=== PATIENT | female | born 1945 | race Caucasian/White ===

== ENCOUNTER 2024-05-10 21:33 | Inpatient (IN) | payer OTHER, SELFPAY ==
[2024-05-10] VITALS (8 sets, daily range): BP systolic 89–125; BP diastolic 62–85; PULSE 77–86; BMI 24.6
--- NOTE | 2024-05-10 17:38 | ED.GENMED ---
ED Provider Triage
<NAHOMI Linda - Last Filed: 05/10/24 17:40>
-
Patient seen by provider in Triage?: Seen in Triage
Attestation: A medical screening examination has been initiated by a qualified medical provider. Based on the assessment performed at this time, it has been determined that an emergent medical condition may exist and the patient has been informed
that further medical evaluation and possible additional diagnostic testing may be needed.
HPI:
78-year-old female brought by daughter for evaluation of weakness for the past week and a half. Patient is felt very weak tired lightheaded. Today she was seeing her pain management doctor and stood up from a bench felt lightheaded and fell
hitting her knees. She denies syncope. She denies hitting her head. She is not on blood thinners other than aspirin. Patient has a history of brain aneurysm GI bleed in the past. Pt denies dark/black stools
GENERAL: Alert , in no apparent distress
EYE: No visual abnormalities.
NECK: Trachea midline
ENT: No visible abnormalities.
LUNGS: No acute respiratory distress
NEUROLOGICAL: Alert and oriented
SKIN: Skin intact. No visible changes.
MUSCULOSKELETAL: Moving extremities normally
PSYCH: Normal and appropriate interaction.
This is a medical evaluation conducted in person to initiate diagnostic evaluation and provide initial therapeutics. Please see further documentation by the treating clinician.
History of Present Illness
<NAHOMI Linda - Last Filed: 05/10/24 17:40>
General
Chief Complaint: Dizziness
Time Seen by Provider: 05/10/24 18:44
<Deepika Denson PA-C - Last Filed: 05/10/24 22:44>
General
Source: patient and family
History of Present Illness
History of Present Illness:
78yoF with a history of coronary artery disease s/p PCI, rheumatoid arthritis on Plaquenil and prednisone, type 2 diabetes, hypertension, bladder cancer, and cerebral aneurysm s/p coiling presenting with her daughter and sister for evaluation of
generalized weakness. Patient has been feeling generally weak and fatigued over the past 1 to 2 weeks. She also is having nausea, decreased p.o. intake, and exertional dyspnea. Patient had an appointment with her pain management doctor today.
While walking into the office, she had a near syncopal episode. Patient states she was sitting on a bench and stood up. She fell onto her knees. There was no head injury or loss of consciousness. Her blood pressure was 91/62 in the office.
Family states the last time she had similar symptoms, she required several blood transfusions for severe anemia. No source of anemia was found at that time. Patient denies any hematochezia, melena, fevers, abdominal pain.
Phy Exam
<Deepika Denson PA-C - Last Filed: 05/10/24 22:44>
General Physical Exam
General Presentation: well appearing and no apparent distress
General age: appears stated age
General Skin: warm and dry
General Habitus: normal
General Mental: alert
ENT Exam
ENT Exam: normocephalic
Cardiovascular Exam
Cardiovascular Exam: regular rate/rhythm and systolic murmur
Pulmonary Exam
Pulmonary Exam: lungs clear, no respiratory distress, no crackles and no wheezing
Gastrointestinal Exam
Gastrointestinal Exam: non tender, soft and non distended
[place] Coma Scale
Eye Opening: Spontaneous
Verbal Response: Oriented
Motor Response: Obeys Commands
GCS Total Score: 15
Skin Exam
Skin Exam: normal color and warm/dry
Psychiatric Exam
Psychiatric Exam: normal mood/affect
Course
<NAHOMI Linda - Last Filed: 05/10/24 17:40>
Orders/Labs/Results
Orders:
Orders
05/10/24 17:40
Electrocardiogram (*1) Stat
Reason for Study: Other
Other Reason for Exam: chest pain
EKG- Treatment ONCE
05/10/24 17:49
Complete Blood Count/With Diff Urgent
Comprehensive Metabolic Panel Urgent
Ferritin Urgent
Comment: ADDON
Folate Urgent
Comment: ADDON
Iron Urgent
Magnesium Urgent
Comment: ADD ON
Total Iron Binding Urgent
Troponin I Urgent
Vitamin B12 Urgent
Comment: ADDON
05/10/24 18:44
Add On- LAB Urgent
Tests Added?: magnesium
Potassium Chloride [KCl] 60 meq PO NOW STA
05/10/24 18:57
Electrocardiogram (*1) Urgent
Reason for Study: Atrial Fibrillation
EKG- Treatment ONCE
05/10/24 19:31
0.9% Sodium Chloride 500 ml [Nss] 500 ml IV BOLUS
Magnesium Sulfate 2 Gram/50 ml [Magnesium Sulfate] 2 gram in 50 ml IV NOW
05/10/24 19:33
CR Chest - 2 Views Urgent
Comment:
Reason For Exam: SOB
05/10/24 19:35
Urinalysis Reflex To Culture Urgent
Date Specimen was Collected: 05/10/24
Time Specimen was Collected: 17:49
Urine Microscopic Reflex Cult Urgent
Urine Culture Urgent
REJI Source: U
Specimen Description:
Date Specimen was Collected: 05/10/24
Time Specimen was Collected: 17:49
05/10/24 20:04
Potassium Chloride [KCl] 20 meq 0.9% Sodium Chloride 150 ml [Nss] 150 ml IV NOW
05/10/24 21:06
Add On- LAB Urgent
Tests Added?: iron, tibc, ferritin, folate b12
05/10/24 21:08
Admit/Transfer Patient As Directed
Co-Sign Provider:
Level of Care: Inpatient admission
Assign to:: Telemetry
Physician / Group: alaina mathew
Diagnosis: Orthostatic hypotension, hypokalemia, hypomagnesemia, anemia
Reason for Telemetry: Arrhythmia
Date to Stop Telemetry: 05/13/24
Time to Stop Telemetry: 11:00
Reason for Hospitalization: Orthostatic hypotension, hypokalemia, hypomagnesemia, anemia
Expected length of stay greater than two midnights?: Yes
ELOS- Estimated Length of Stay in days: 3
I certify the patient meets the requirements for IP care: Yes
Code Status As Directed
Resuscitation Status: Full Code
05/10/24 21:11
PRN Pain Medication Management As Directed
May give lesser potent ordered pain med per pt: Yes
preference::
Protocol:: Medication orders for pain may be administered in a
manner that supports deferring to patient preference
when the pt is:
- Requesting an ordered lesser potent pain medication.
Least to most potent pain medications are defined
as: acetaminophen < NSAID < tramadol < opioids
(morphine, oxycodone, hydromorphone).
- Requesting a lesser dose of the same medication IF
ORDERED.
- Requesting a less intrusive route of administration
if both routes are prescribed by the provider (PO <
IV).
05/13/24 11:00
DC Protocol for Telemetry ONCE
Abnormal Lab Results
05/10/24 05/10/24
17:49 19:35
RBC 3.75 L 10^6/uL
(4.20-5.40)
Hgb 10.6 L g/dL
(12.0-16.0)
Hct 30.3 L %
(37.0-47.0)
MCV 80.8 L fL
(81.0-99.0)
Absolute Monos (auto) 0.7 H 10^3/uL
(0.1-0.6)
Lymphocytes % 18.7 L %
(20.5-51.1)
Sodium 133 L mmol/L
(135-145)
Potassium 2.8 L mmol/L
(3.5-5.1)
Chloride 93 L mmol/L
(98-107)
BUN 18 H mg/dl
(7-17)
Magnesium 1.5 L mg/dl
(1.6-2.3)
Leukocyte Esterase Rfl 2+ A
(Negative)
Urine WBC (Reflex) 26-30 A /HPF
(0-5)
Urine Bacteria (Reflex) Many A
(Negative)
05/10/24 17:49
05/10/24 17:49
Vital Signs
Initial and Last Documented VS:
Initial Vital Signs
Temp Pulse Resp BP Pulse Ox
98.2 F 87 18 102/83 98
05/10/24 17:30 05/10/24 17:30 05/10/24 17:30 05/10/24 17:30 05/10/24 17:30
Last Documented Vital Signs
Temp Pulse Resp BP Pulse Ox
98.4 F 75 19 116/70 98
05/10/24 22:20 05/10/24 22:15 05/10/24 22:15 05/10/24 20:00 05/10/24 22:00
Laurynlt;Deepika Denson PA-C - Last Filed: 05/10/24 22:44>
Orders/Labs/Results
Orders:
Orders
05/10/24 17:40
Electrocardiogram (*1) Stat
Reason for Study: Other
Other Reason for Exam: chest pain
EKG- Treatment ONCE
05/10/24 17:49
Complete Blood Count/With Diff Urgent
Comprehensive Metabolic Panel Urgent
Ferritin Urgent
Comment: ADDON
Folate Urgent
Comment: ADDON
Iron Urgent
Magnesium Urgent
Comment: ADD ON
Total Iron Binding Urgent
Troponin I Urgent
Vitamin B12 Urgent
Comment: ADDON
05/10/24 18:44
Add On- LAB Urgent
Tests Added?: magnesium
Potassium Chloride [KCl] 60 meq PO NOW STA
05/10/24 18:57
Electrocardiogram (*1) Urgent
Reason for Study: Atrial Fibrillation
EKG- Treatment ONCE
05/10/24 19:31
0.9% Sodium Chloride 500 ml [Nss] 500 ml IV BOLUS
Magnesium Sulfate 2 Gram/50 ml [Magnesium Sulfate] 2 gram in 50 ml IV NOW
05/10/24 19:33
CR Chest - 2 Views Urgent
Comment:
Reason For Exam: SOB
05/10/24 19:35
Urinalysis Reflex To Culture Urgent
Date Specimen was Collected: 05/10/24
Time Specimen was Collected: 17:49
Urine Microscopic Reflex Cult Urgent
Urine Culture Urgent
REJI Source: U
Specimen Description:
Date Specimen was Collected: 05/10/24
Time Specimen was Collected: 17:49
05/10/24 20:04
Potassium Chloride [KCl] 20 meq 0.9% Sodium Chloride 150 ml [Nss] 150 ml IV NOW
05/10/24 21:06
Add On- LAB Urgent
Tests Added?: iron, tibc, ferritin, folate b12
05/10/24 21:08
Admit/Transfer Patient As Directed
Co-Sign Provider:
Level of Care: Inpatient admission
Assign to:: Telemetry
Physician / Group: alaina mathew
Diagnosis: Orthostatic hypotension, hypokalemia, hypomagnesemia, anemia
Reason for Telemetry: Arrhythmia
Date to Stop Telemetry: 05/13/24
Time to Stop Telemetry: 11:00
Reason for Hospitalization: Orthostatic hypotension, hypokalemia, hypomagnesemia, anemia
Expected length of stay greater than two midnights?: Yes
ELOS- Estimated Length of Stay in days: 3
I certify the patient meets the requirements for IP care: Yes
Code Status As Directed
Resuscitation Status: Full Code
05/10/24 21:11
PRN Pain Medication Management As Directed
May give lesser potent ordered pain med per pt: Yes
preference::
Protocol:: Medication orders for pain may be administered in a
manner that supports deferring to patient preference
when the pt is:
- Requesting an ordered lesser potent pain medication.
Least to most potent pain medications are defined
as: acetaminophen < NSAID < tramadol < opioids
(morphine, oxycodone, hydromorphone).
- Requesting a lesser dose of the same medication IF
ORDERED.
- Requesting a less intrusive route of administration
if both routes are prescribed by the provider (PO <
IV).
05/13/24 11:00
DC Protocol for Telemetry ONCE
Abnormal Lab Results
05/10/24 05/10/24
17:49 19:35
RBC 3.75 L 10^6/uL
(4.20-5.40)
Hgb 10.6 L g/dL
(12.0-16.0)
Hct 30.3 L %
(37.0-47.0)
MCV 80.8 L fL
(81.0-99.0)
Absolute Monos (auto) 0.7 H 10^3/uL
(0.1-0.6)
Lymphocytes % 18.7 L %
(20.5-51.1)
Sodium 133 L mmol/L
(135-145)
Potassium 2.8 L mmol/L
(3.5-5.1)
Chloride 93 L mmol/L
(98-107)
BUN 18 H mg/dl
(7-17)
Magnesium 1.5 L mg/dl
(1.6-2.3)
Leukocyte Esterase Rfl 2+ A
(Negative)
Urine WBC (Reflex) 26-30 A /HPF
(0-5)
Urine Bacteria (Reflex) Many A
(Negative)
05/10/24 17:49
05/10/24 17:49
Vital Signs
Initial and Last Documented VS:
Initial Vital Signs
Temp Pulse Resp BP Pulse Ox
98.2 F 87 18 102/83 98
05/10/24 17:30 05/10/24 17:30 05/10/24 17:30 05/10/24 17:30 05/10/24 17:30
Last Documented Vital Signs
Temp Pulse Resp BP Pulse Ox
98.4 F 75 19 116/70 98
05/10/24 22:20 05/10/24 22:15 05/10/24 22:15 05/10/24 20:00 05/10/24 22:00
<Deepika Denson PA-C - Last Filed: 05/10/24 22:44>
MDM/Problems Addressed
Differential Diagnosis Includes:
78yoF here with generalized weakness, nausea, malaise x 1-2 weeks. Had a near syncopal episode this afternoon. BP was 91/62 at that time. BP 102/83 on arrival. Remainder of vitals stable. She is well appearing in no distress. Differential diagnosis
includes but is not limited to: dehydration, orthostatic hypotension, BR[place], electrolyte abnormality, failure to thrive, medication side effect
Initial ED plan: Cardiac labs and EKG obtained in triage. Labs show a potassium of 2.8. Hemoglobin 10.6, down from 12.2 last year. Troponin WNL. Will add on magnesium and CXR.
<Deepika Denson PA-C - Last Filed: 05/10/24 22:44>
*EKG
Interpreted by ED Provider?: Yes
EKG Intrepretation Date: 05/10/24
Heart Rate: 71
Rate: normal
Rhythm: sinus and sinus arrhythmia
[place]: left axis deviation
Interval: normal interval
QRS Pattern: normal QRS
Ischemia: no ischemia
*Critical Care Note
Total Time (30-74mins, 75-104mins- exclusive of procedures): Not Applicable
<Deepika Denson PA-C - Last Filed: 05/10/24 22:44>
Update Note
Update Note:
Magnesium 1.5. CXR is clear. Potassium and magnesium replacement ordered. BP did drop to 89/73 while in the ED. IV fluid bolus ordered. She was admitted for further evaluation and management.
ED Attending Note
<NAHOMI Linda - Last Filed: 05/10/24 17:40>
-
Portions of this chart may have been created with voice recognition software.� Occasional wrong word or��sound alike� substitutions may have occurred due to the inherent limitations of voice recognition software.
Discharge Plan
Departure
Patient Disposition: Admit
Date of Disposition: 05/10/24
Time of Disposition: 20:21
Presentation/result/management discussed w/ accepting MD/DO: Hospitalist
Discharge Problem:
Generalized weakness, Hypokalemia
Interventions
Interventions:
*Risk Screen - Suicide Last Done: 05/10/24 17:30
*General Assessment Last Done: 05/10/24 17:30
*Neglect/Abuse Screening Last Done: 05/10/24 20:38
*ED COVID-19 Vaccine History Last Done: 05/10/24 17:30
ED- Neurological Assessment Last Done: 05/10/24 19:58
ED Swallowing Screen Last Done: 05/10/24 19:58
[2024-05-10 18:05] LABS: % Basophils 0.6 % (0-2); % Immature Granulocytes 0.3 % (0-0.5); % Lymphocytes 18.7 % (20.5-51.1); % Monocytes 8.5 % (1.7-9.3); % Neutrophils 71.9 % (42.2-75.2); Absolute Basophils 0.1 10^3/uL (0-0.2); Absolute Lymphocytes 1.6 10^3/uL (1.2-3.4); Absolute Monocytes 0.7 10^3/uL (0.1-0.6); Absolute Neutrophils 6.2 10^3/uL (1.4-6.5); Hematocrit 30.3 % (37.0-47.0); Hemoglobin 10.6 g/dL (12.0-16.0); Mean Corpuscular Hgb 28.3 pg (27.0-31.0); Mean Corpuscular Volume 80.8 fL (81.0-99.0); Nucleated Red Blood Cells % 0 %; Platelet Count 222 10^3/uL (130-400); Red Blood Cell Count 3.75 10^6/uL (4.20-5.40); Red Cell Dist. Width 14.2 % (11.5-14.5); White Blood Cell Count 8.7 10^3/uL (4.8-10.8)
[2024-05-10 18:17] LABS: ALT (SGPT) 27 U/L (0-35); AST (SGOT) 35 U/L (14-36); Albumin 4.1 g/dl (3.5-5.0); Alkaline Phosphatase 63 U/L (38-126); Blood Urea Nitrogen 18 mg/dl (7-17); Calcium 9.4 mg/dl (8.4-10.2); Carbon Dioxide 30 mmol/L (22-30); Chloride 93 mmol/L (98-107); Glucose 95 mg/dl (70-99); Potassium 2.8 mmol/L (3.5-5.1); Sodium 133 mmol/L (135-145); Total Bilirubin 0.6 mg/dl (0.2-1.3); Total Protein 6.5 g/dl (6.3-8.2); eGFR > 60.00
[2024-05-10 18:30] LABS: Troponin I 0.018 ng/ml
[2024-05-10] MEDS: KCL 60 MEQ PO (18:59)
[2024-05-10 19:18] LABS: Magnesium 1.5 mg/dl (1.6-2.3)
[2024-05-10 19:44] LABS: Urine Albumin Negative (Neg - Trace); Urine Bilirubin Negative (Negative); Urine Character Clear (Clear); Urine Color Yellow; Urine Glucose Negative (Negative); Urine Ketone Negative (Negative); Urine Leukocyte 2+ (Negative); Urine Nitrite Negative (Negative); Urine Occult Blood Negative (Negative); Urine Urobilinogen Negative (Neg - 1+)
[2024-05-10 19:54] LABS: Urine Squamous Cell 16-20 /LPF (Few)
[2024-05-10 19:55] LABS: Urine Bacteria Many (Negative); Urine Red Blood Cell 0-2 /HPF (0-2); Urine White Cell 26-30 /HPF (0-5)
--- NOTE | 2024-05-10 20:29 | HPS.HSE ---
Family Physician
-
Family Physician: Sekou Hernandez
Chief Complaint
-
Lightheadedness
History of Present Illness
78-year-old female brought by daughter for evaluation of weakness for the past week and a half she has been feeling very tired and lightheaded. Today she reports she saw pain management and when standing up from the bed she felt very lightheaded
falling to her knees but denies syncope or head injury. Her daughter reported a blood pressure in the office of 91/62. The patient denies headache, sore throat, fever, chills, chest pain, palpitations, shortness of breath, cough, abdominal pain,
nausea, vomiting, diarrhea, urinary symptoms, black stools. While in the ER she was noted to have near syncope with hypotension and blood pressures 89/73 along with hypokalemia and hypomagnesemia. Her hemoglobin is noted to be 10.6 I reviewed
patient's labs on her portal showing a hemoglobin of 12.6 on April 19, 2024. Patient denies any rectal bleeding or hematuria. I will check patient's iron and B12 levels and advised patient's daughter Elyse to follow-up with primary care
provider to follow her hemoglobin as outpatient. She has past medical history of brain aneurysm status post coiling x 18 from , stent 2017, GI bleed 2021 requiring blood transfusion, had negative Endo and capsule Endo, CAD status post
PCI/stent x 2, RA on Plaquenil and prednisone, DM2, HTN, bladder cancer with history of tumor removals, chemo wash 2018,Iron deficiency anemia, Former smoker quit 1994, Chronic torn rotator cuff and bicep left arm from recent fall 2023, chronic
tremors to hands, hypothyroidism.
Medical History
Past Medical History
Past Medical History: Reports Other
Additional Past Medical History:
brain aneurysm status post coiling total 18 coils from and 1 stent 2017
GI bleed 2021 requiring blood transfusion had capsule Endo, endoscopic he that were negative
CAD status post PCI
RA on Plaquenil and prednisone
DM2
HTN
bladder cancer history of tumor removals with chemo wash 2018, recent bladder tumor removal in office January 2024
Iron deficiency anemia
Former smoker quit 1994
Chronic torn rotator cuff and bicep left arm from recent fall 2023
Chronic hand tremors
Hypothyroidism
Past Surgical History: Reports Other
Additional Past Surgical History:
brain aneurysm status post coiling total 18 coils from and 1 stent 2017
Hemorrhoid clipping
Cardiac stents x 2
Left knee replacement
Social History
Tobacco: Former Smoker (Quit 1994)
Alcohol: None
Drug: None
Personal: Single
Living: Alone
Employment: Retired
Family History
Family History: Not pertinent
Allergies / Home Medications
Allergies reflects when Allergies were last updated in [facility].
Home Medications with original date entered in [facility]
Allergy/Medication List:
Allergies
Allergy/AdvReac Type Severity Reaction Status Date / Time
morphine Allergy Itching Verified 05/10/24 17:39
Home Medications
Ozempic 0.25 mg SC MO 05/10/24
aspirin 81 mg chewable tablet 81 mg PO DAILY 05/10/24
cetirizine 10 mg tablet (Zyrtec) 10 mg PO HS 05/10/24
chlorthalidone 25 mg tablet 25 mg PO DAILY 05/10/24
cholecalciferol (vitamin D3) 50 mcg (2,000 unit) tablet (Vitamin D3) 50 mcg PO DAILY 05/10/24
coenzyme Q10 100 mg capsule (CoQ-10) 200 mg PO HS 05/10/24
docusate sodium 100 mg capsule (Stool Softener) 100 mg PO BID 05/10/24
ezetimibe 10 mg tablet 10 mg PO HS 05/10/24
ferrous sulfate 325 mg (65 mg iron) tablet 325 mg PO DAILY 05/10/24
fluticasone propionate 50 mcg/actuation nasal spray,suspension 1 spray intranasal HSPRN PRN allergies 05/10/24
folic acid 1 mg tablet 1 mg PO DAILY 05/10/24
gabapentin 300 mg capsule 300 mg PO TID 05/10/24
hydroxychloroquine 200 mg tablet 200 mg PO BID 05/10/24
leflunomide 20 mg tablet 20 mg PO DAILY 05/10/24
levothyroxine 88 mcg tablet 88 mcg PO DAILY 05/10/24
mirabegron 25 mg tablet,extended release 24 hr (Myrbetriq) 25 mg PO DAILY 05/10/24
multivitamin with iron (Hair Vitamins tablet) 2 tab PO DAILY 05/10/24
multivitamin with minerals-folic acid 200 mcg chewable tablet (Multivitamin Gummies) 400 tab PO DAILY 05/10/24
pantoprazole 40 mg tablet,delayed release 40 mg PO DAILY 05/10/24
polyethylene glycol 3350 17 gram oral powder packet (Miralax) 17 g PO DAILY 05/10/24
prednisone 5 mg tablet 2.5 mg PO DAILY 05/10/24
propranolol 40 mg tablet 40 mg PO BID 05/10/24
psyllium seed (sugar) oral powder 2 tbsp PO HS 05/10/24
ramipril 5 mg capsule 5 mg PO HS 05/10/24
rosuvastatin 10 mg tablet 10 mg PO HS 05/10/24
sertraline 50 mg tablet 50 mg PO DAILY 05/10/24
tramadol 50 mg tablet 50 mg PO BIDPRN PRN moderate pain 05/10/24
Review of Systems
-
History Source: Patient and Family (Daughter Elyse at bedside)
A 12 point ROS was completed and negative except as noted: Yes
Constitutional: Reports Fatigue; Denies Fever or Chills
EENT: Denies Sore Throat or Runny Nose
Respiratory: Denies Cough or Trouble Breathing
Cardiac: Denies Chest Pain, Diaphoresis, Palpitations or Syncope
Abdomen/GI: Reports Nausea; Denies Abdominal Pain, Vomiting, Diarrhea, Constipated, Bloody Stools or Black Stools
: Denies Dysuria, Frequency, Flank Pain, Incontinence, Difficulty Voiding or Urgency
Musculoskeletal: Denies Joint Pain or Edema
Skin: Denies Itching or Rash
Neurological: Reports Dizzy and Weakness; Denies Headache or Numbness
Endocrine: Reports No Symptoms
Hematologic/Lymphatic: Reports No Symptoms
Psych: Reports Calm
Physical Exam
Vital Signs
Vital Signs
Temp Pulse Resp BP Pulse Ox
98.2 F 95 22 125/80 97
05/10/24 17:30 05/10/24 19:45 05/10/24 19:45 05/10/24 19:11 05/10/24 19:45
Physical Exam
General: No Fever or Chills
HEENT: NormoCephalic, Anicteric, PERRLA, [place] Conjunctivae and No Ptosis
Respiratory: Clear; No Wheezes, Rales or Rhonchi
Cardiac: S1/S2 and Regular Rhythm; No Murmur, Rub, Gallop or Peripheral Edema
Breast: Deferred by me
GI: Soft, Non Tender, Non Distended, Normal Bowel Sounds and No Hepatosplenomegaly
Rectal: Deferred by Provider
Genito-urinary: Deferred by me
Musculoskeletal: No Clubbing, No Cyanosis and No Edema
Skin: Warm and Dry; No Rash
Neuro: AO x 3, No Motor Deficits, Nonfocal/grossly intact, Cranial Nerves Intact and No Sensory Deficits; No Slurred Speech, Facial Droop or Tremors
Psych: Calm
Laboratory Results
-
05/10/24 17:49
05/10/24 17:49
Laboratory Results
Total Bilirubin 0.6 mg/dl (0.2-1.3) 05/10/24 17:49
AST 35 U/L (14-36) 05/10/24 17:49
ALT 27 U/L (0-35) 05/10/24 17:49
Alkaline Phosphatase 63 U/L (38-126) 05/10/24 17:49
Troponin I 0.018 ng/ml 05/10/24 17:49
Data Reviewed
-
Lab Data: Labs Reviewed by me
Impression/Plan
-
Impression/plan:
Admit to telemetry
#Orthostatic hypotension/essential HTN
BP 89/73
-IV NSS bolus
-IV NSS 80 cc an hour
-Check orthostatic vitals
-Hold chlorthalidone, propranolol 40 mg twice daily, ramipril 5 mg at bedtime
-Check CXR
EKG: Sinus rhythm with sinus arrhythmia 73 bpm, QTc 436 MS no significant change from April 2024
#Acute hypokalemia 2/2 diuretic
-K2.8 patient given 60 p.o. KCl and 20 mEq and IV NSS
-Follow BMP
#Acute hypomagnesemia 2/2 diuretic
#Mag 1.5
Patient given 2 g rider in ER
-Follow mag level in a.m.
# Acute on chronic anemia microcytic
#GI bleed Hx 2021
-Patient required blood transfusion had reported Endo and Do That Were Negative According to Daughter
Hgb 10.6 prior 12.6 04/19/2024 on patient's portal, patient denies any black stools or hematuria
-Will check iron panel, B12, folate
-Advised daughter to have outpatient follow-up with PCP to track her hemoglobin
-Continue folic acid 1 mg daily, ferrous sulfate 325 mg daily
#Brain aneurysm status post coiling x 18 from , stent placed 2017
#CAD status post PCI 2 stents
-Continue aspirin 81 mg daily, Zetia 10 mg at bedtime, Crestor 10 mg at bedtime
#RA on chronic prednisone
-Continue prednisone and Plaquenil
#DM 2
Accu-Cheks with SSI, check HbA1c
-Patient on current Ozempic x 3 months currently at 2.5 mg took on 05/06/2024
#Hypothyroidism
Continue levothyroxine 88 mcg p.o. daily
#Bladder CA history of bladder tumor removals
#History chemo wash 2018
#Overactive bladder
Last tumor removal 3 to 4 months ago in office
-Continue Myrbetriq 25 mg daily
Anxiety
Continue Zoloft 50 mg daily
#Chronic left rotator cuff and bicep tear recent fall 2023
Chronic hand tremors
-Continue gabapentin 300 mg 3 times daily
DVT prophylaxis
Subcu heparin
Full code per patient with daughter Elyse TORRES at bedside
--- NOTE | 2024-05-10 20:32 | PHANOTE ---
med rec kee(05/10/24)-Patient utilized [facility] for many of her medications, which cannot be seen in [facility]. Due to time of day, pharmacy closed, unable to confirm medications that cannot be seen from [facility].
[2024-05-10] MEDS: KCL 160 MEQ IV (20:33)
[2024-05-10] MEDS: MAGNESIUM SULFATE 50 IV (20:34)
[2024-05-10] MEDS: NSS 500 IV (20:37)
--- NOTE | 2024-05-10 21:23 | W.PN.UPDATE ---
Update Note
Progress Note Update
This is an addendum to the H&P written by Gia Robles on 05/10/2024. Patient seen and examined independently with HEEL PRICKER.
78-year-old female past medical history of CAD status post PCI, rheumatoid arthritis, type 2 diabetes, hypertension, bladder cancer, cerebral aneurysm status post coiling, prior GI bleeding with negative capsule endoscopy, anemia, presenting for
generalized weakness and fatigue, nausea, and exertional dyspnea. Pain management appointment today for near syncopal episode with lightheadedness. Blood pressure was 91/62.
Labs show potassium 2.8, magnesium 1.5.
Chest x-ray pending.
Likely symptomatic hypokalemia/hypotension secondary to chlorthalidone. Hold chlorthalidone. IV fluids given. Replete magnesium and potassium.
Hemoglobin dropped from 12.2-10.6 in March. No GI bleeding. Check iron studies, B12 and folate. No acute bleeding. Outpatient follow-up with primary/GI.
[2024-05-10 23:11] LABS: Iron 62 ug/dl (37-170)
[2024-05-10 23:21] LABS: Percent Saturation 18 % (20-50); Total Iron Binding Capacity 332 ug/dl (265-497)
[2024-05-11] VITALS (11 sets, daily range): BP systolic 102–150; BP diastolic 59–104; PULSE 82–126; O2SAT 100
[2024-05-11 00:14] LABS: Folate > 20.0 ng/ml (2.76-20); Vitamin B12 452 pg/ml (239-931)
[2024-05-11 01:37] LABS: Glucose - Point of Care 139 mg/dl (70-99)
[2024-05-11] MEDS: ZETIA 10 MG PO ×2 (02:03→21:08)
[2024-05-11] MEDS: NEURONTIN 300 MG PO ×4 (02:03→21:08)
[2024-05-11] MEDS: ZYRTEC 10 MG PO ×2 (02:03→21:09)
[2024-05-11] MEDS: NSS 1000 IV ×2 (02:06→16:02)
[2024-05-11] MEDS: CRESTOR 10 MG PO ×2 (02:07→21:08)
[2024-05-11] MEDS: SYNTHROID 88 MCG PO (05:56)
[2024-05-11 08:16] LABS: % Basophils 0.7 % (0-2); % Immature Granulocytes 0.4 % (0-0.5); % Lymphocytes 21.1 % (20.5-51.1); % Monocytes 10.2 % (1.7-9.3); % Neutrophils 67.6 % (42.2-75.2); Absolute Lymphocytes 1.1 10^3/uL (1.2-3.4); Absolute Monocytes 0.6 10^3/uL (0.1-0.6); Absolute Neutrophils 3.7 10^3/uL (1.4-6.5); Hematocrit 29.5 % (37.0-47.0); Hemoglobin 10.1 g/dL (12.0-16.0); Mean Corp Hgb Conc. 34.2 g/dL (33.0-37.0); Mean Corpuscular Hgb 28.5 pg (27.0-31.0); Mean Corpuscular Volume 83.3 fL (81.0-99.0); Mean Platelet Volume 10.2 fL (7.4-10.4); Nucleated Red Blood Cells % 0 %; Platelet Count 179 10^3/uL (130-400); Red Blood Cell Count 3.54 10^6/uL (4.20-5.40); Red Cell Dist. Width 14.1 % (11.5-14.5); White Blood Cell Count 5.4 10^3/uL (4.8-10.8)
--- NOTE | 2024-05-11 09:01 | W.PN.HOSP.TC ---
Today's Communication/Plan
-
Hypokalemia possibly secondary to chlorthalidone. Hypomagnesia as well. Magnesium and potassium repleted. Patient given IV fluid support and compression stockings for orthostatic hypotension.
Assessment / Plan
Assessment / Plan
Chief complaint: Dizziness
HPI: The patient is a 78-year-old female with a history of coronary artery disease s/p PCI, rheumatoid arthritis, type 2 diabetes, hypertension, bladder cancer, and cerebral aneurysm s/p coiling who presented with her daughter and sister for
evaluation of generalized weakness. The patient had been feeling generally weak and fatigued over the last 1 to 2 weeks. She was also having nausea, decreased oral intake and exertional dyspnea. The patient was seen by her pain management
physician the day of her presentation to the emergency department and while walking into that physician's office she had a near syncopal episode. She was sitting on a bench and then stood up and then she fell onto her knees. There was no head
injury or loss of consciousness. Her blood pressure was 91/62 in the office. Her family stated that she has had similar symptoms in the past. She required several blood transfusions for severe anemia in the past. She had a GI bleed in 2021 which
required a blood transfusion.
Dehydration, orthostatic hypotension, BRISEIDA, electrolyte abnormalities, failure to thrive, medication side effect
Assessment/plan:
-Orthostatic hypotension:
Presyncope�the patient never lost consciousness
EKG did not show any arrhythmia.
Blood pressure was 89/73 in the emergency department
IV normal saline bolus given
IV normal saline given for hemodynamic support
Continue to check orthostatic vitals
Holding chlorthalidone, propranolol, and ramipril for the time being
Chest x-ray conducted on 05/10/2024 in the emergency department showed no acute disease of the chest
Urine analysis showed an elevated white blood cell count at 26-30 and many urine bacteria. -Urine culture pending
Compression stockings provided
-Chronic anemia:
History of GI bleed in the past
serum ferritin of 108, iron saturation 18% which likely indicates anemia of chronic disease
May need to recheck stool for occult blood
-Hypokalemia:
Serum potassium in the emergency department was 2.8 -repleted
-Hypomagnesemia:
Serum magnesium in the emergency department was 1.5�repleted
FULL CODE STATUS
DVT prophylaxis: Heparin subcu
Anticipated Discharge: 24 - 48 hours
Subjective/Interval History
-
Date of Service: May 11, 2024
Patient states that she is doing much better today than she was yesterday. Patient is calm and cooperative in discussion. She shared that she was having a sore throat on the left side of her throat and suspects that it might be due to her CPAP and
her turning her head to that side while she sleeps.
Objective Data
-
Labs:
Labs
05/11/24 07:56
05/11/24 07:56
Vital Signs:
Vital Signs
Temp Pulse Resp BP Pulse Ox
98.4 F 77 18 129/60 99
05/11/24 08:00 05/11/24 08:00 05/11/24 08:00 05/11/24 08:00 05/11/24 08:00
Review of Systems
-
History Source: Patient
Constitutional: Reports Weakness
EENT: Reports Sore Throat
Respiratory: Reports No Symptoms
Cardiac: Reports No Symptoms
Abdomen/GI: Reports No Symptoms
Breast: Reports No Symptoms
Genitourinary: Reports No Symptoms
Musculoskeletal: Reports Muscle Weakness
Skin: Reports No Symptoms
Neuro: Reports No Symptoms
Endocrine: Reports No Symptoms
Hematologic / Lymphatic: Reports No Symptoms
Allergy / Immunology: Reports No Symptoms
Physical Exam
-
General: Well Developed, Well Nourished and Other (Weakness)
HEENT: Normocephalic, Atraumatic and Moist Mucous Membranes
Respiratory: Clear to Auscultation
Cardiac: Regular Rhythm and S1/S2
Breast: Deferred by me
GI: Soft, Nontender, Nondistended and Normal Bowel Sounds
Rectal: Deferred by Provider
Genito-urinary: Deferred by me
Musculoskeletal: No Clubbing, No Cyanosis and No Edema
Skin: Warm and Dry
Neuro: Awake, Alert, Oriented and AO x 3
Psych: Calm
[2024-05-11 09:15] LABS: ALT (SGPT) 24 U/L (0-35); AST (SGOT) 30 U/L (14-36); Albumin 3.6 g/dl (3.5-5.0); Alkaline Phosphatase 66 U/L (38-126); Blood Urea Nitrogen 14 mg/dl (7-17); Calcium 9.1 mg/dl (8.4-10.2); Carbon Dioxide 29 mmol/L (22-30); Chloride 102 mmol/L (98-107); Estimated Creatinine Clearance 56 ml/min; Glucose 105 mg/dl (70-99); Magnesium 1.9 mg/dl (1.6-2.3); Potassium 3.4 mmol/L (3.5-5.1); Sodium 138 mmol/L (135-145); Total Bilirubin 0.3 mg/dl (0.2-1.3); Total Protein 5.9 g/dl (6.3-8.2); eGFR > 60.00
[2024-05-11 09:18] LABS: Glucose - Point of Care 131 mg/dl (70-99)
[2024-05-11] MEDS: NOVOLOG FLEXPEN-LOW RESISTANCE SC (09:48)
[2024-05-11] MEDS: PROTONIX 40 MG PO (09:49)
[2024-05-11] MEDS: MIRALAX 17 GRAMS PO (09:49)
[2024-05-11] MEDS: THERAGRAN 2 TABLET PO (09:49)
[2024-05-11] MEDS: COLACE 100 MG PO ×2 (09:49→21:08)
[2024-05-11] MEDS: VITAMIN D3 (cholecalciferol) 50 MCG PO (09:50)
[2024-05-11] MEDS: FOLVITE 1 MG PO (09:50)
[2024-05-11] MEDS: FEOSOL 325 MG PO (09:50)
[2024-05-11] MEDS: PLAQUENIL 200 MG PO ×2 (09:50→21:09)
[2024-05-11] MEDS: ZOLOFT 50 MG PO (09:50)
[2024-05-11] MEDS: LOW STRENGTH ASPIRIN 81 MG PO (09:51)
[2024-05-11] MEDS: DELTASONE 2.5 MG PO (09:51)
[2024-05-11] MEDS: HEPARIN 5000 UNITS SC ×2 (09:51→21:09)
[2024-05-11 11:05] LABS: Glycohemoglobin (HgbA1c) 5.2 % (4.0-5.6)
[2024-05-11 12:31] LABS: Glucose - Point of Care 169 mg/dl (70-99)
[2024-05-11] MEDS: NOVOLOG FLEXPEN-LOW RESISTANCE 1 UNITS SC ×2 (12:54→17:17)
--- NOTE | 2024-05-11 15:42 | CM ---
marketing content manager reviewed patient's chart and met with patient and patient lives with daughter in a in law suite with one step to enter, patient is independent with adl's and ambulation, no dme, physical therapy assessed patient and recommendation is
for home with outpatient PT/OT, per patient she has script, patient needs a script for walker.
PCP: Dr. Sekou Hernandez
Pharmacy: [facility] or [facility] outpatient pharmacy.
--- NOTE | 2024-05-11 15:49 | W.PN.UPDATE ---
Update Note
Progress Note Update
I saw and evaluated the patient. I reviewed the resident�s note and agree with findings and plan as documented in the resident�s note.
1. Pre-syncope, orthostatic hypotension - otho vitals positive, EKG did not show arrthymia. No murmur on exam. no previous TTE in chart. Provide compression stockings. Stop chlorthalidone. Got IVF> continue monitoring ortho vitals. Patient
propranolol has been also held and patient may have some rebound tachyarrhythmia. Continue monitoring
2. Chronic anemia, H/o GI bleed -serum ferritin of 108, iron saturation 18% likely anemia of chronic disease from RA. Patient have history of GI bleed in the past and have undergone EGD/C-scope/capsule endoscopy 2 years back without any clear
source. Patient hemoglobin has been drifting down from 12 to 10 and recheck stool for occult blood
3. Hypokalemia/Hypomagnesemia - Replaced K as needed, Mag replaced.
Totatl time spent ; 52 mins
[2024-05-11 17:13] LABS: Glucose - Point of Care 158 mg/dl (70-99)
[2024-05-11 21:23] LABS: Glucose - Point of Care 121 mg/dl (70-99)
[2024-05-12] MEDS: NSS 1000 IV (02:01)
[2024-05-12 03:14] VITALS: BP 111/65
[2024-05-12 07:00] VITALS: BP 123/68; BP 130/84; BP 140/75; PULSE 104; PULSE 74; PULSE 94
[2024-05-12 07:14] LABS: % Basophils 0.8 % (0-2); % Immature Granulocytes 0.4 % (0-0.5); % Lymphocytes 26.3 % (20.5-51.1); % Monocytes 11.8 % (1.7-9.3); % Neutrophils 60.7 % (42.2-75.2); Absolute Lymphocytes 1.3 10^3/uL (1.2-3.4); Absolute Monocytes 0.6 10^3/uL (0.1-0.6); Hematocrit 26.8 % (37.0-47.0); Hemoglobin 9.2 g/dL (12.0-16.0); Mean Corp Hgb Conc. 34.3 g/dL (33.0-37.0); Mean Corpuscular Hgb 29.5 pg (27.0-31.0); Mean Corpuscular Volume 85.9 fL (81.0-99.0); Mean Platelet Volume 10.2 fL (7.4-10.4); Nucleated Red Blood Cells % 0 %; Platelet Count 149 10^3/uL (130-400); Red Blood Cell Count 3.12 10^6/uL (4.20-5.40); Red Cell Dist. Width 14.2 % (11.5-14.5)
[2024-05-12] MEDS: SYNTHROID 88 MCG PO (07:17)
[2024-05-12 07:41] LABS: ALT (SGPT) 23 U/L (0-35); AST (SGOT) 30 U/L (14-36); Albumin 3.2 g/dl (3.5-5.0); Alkaline Phosphatase 78 U/L (38-126); Blood Urea Nitrogen 7 mg/dl (7-17); Carbon Dioxide 30 mmol/L (22-30); Chloride 104 mmol/L (98-107); Estimated Creatinine Clearance 65 ml/min; Glucose 102 mg/dl (70-99); Potassium 3.3 mmol/L (3.5-5.1); Sodium 141 mmol/L (135-145); Total Bilirubin 0.2 mg/dl (0.2-1.3); Total Protein 5.5 g/dl (6.3-8.2); eGFR > 60.00
[2024-05-12 08:04] LABS: Glucose - Point of Care 118 mg/dl (70-99)
[2024-05-12] MEDS: NOVOLOG FLEXPEN-LOW RESISTANCE SC ×2 (08:46→12:15)
[2024-05-12] MEDS: DELTASONE 2.5 MG PO (08:48)
[2024-05-12] MEDS: PLAQUENIL 200 MG PO (08:49)
[2024-05-12] MEDS: NEURONTIN 300 MG PO (08:49)
[2024-05-12] MEDS: LOW STRENGTH ASPIRIN 81 MG PO (08:50)
[2024-05-12] MEDS: FOLVITE 1 MG PO (08:50)
[2024-05-12] MEDS: COLACE 100 MG PO (08:51)
[2024-05-12] MEDS: PROTONIX 40 MG PO (08:51)
[2024-05-12] MEDS: ZOLOFT 50 MG PO (08:52)
[2024-05-12] MEDS: THERAGRAN 2 TABLET PO (08:52)
[2024-05-12] MEDS: VITAMIN D3 (cholecalciferol) 50 MCG PO (08:53)
[2024-05-12] MEDS: FEOSOL 325 MG PO (08:54)
[2024-05-12] MEDS: HEPARIN 5000 UNITS SC (08:54)
[2024-05-12] MEDS: MIRALAX 17 GRAMS PO (08:59)
[2024-05-12 11:00] VITALS: BP 156/83
--- NOTE | 2024-05-12 12:00 | W.PN.HOSP.TC ---
Today's Communication/Plan
-
d/c home
Assessment / Plan
Assessment / Plan
1. Pre-syncope, orthostatic hypotension - otho vitals positive, EKG did not show arrhythmia. No murmur on exam. no previous TTE in chart. Provide compression stockings. Stop chlorthalidone. Got IVF. Ortho vitals are negative today. Patient
propranolol has been also held and patient may have some rebound tachyarrhythmia. At discharge patient to go off of chlorthalidone. Resume back Propranolol at lower dose of 20mg BID
2. Chronic anemia, H/o GI bleed -serum ferritin of 108, iron saturation 18% likely anemia of chronic disease from RA. Patient have history of GI bleed in the past and have undergone EGD/C-scope/capsule endoscopy 2 years back without any clear
source. Patient hemoglobin 9.2 today, fecal occult test is negative. Some compoenent of dilutional anemia and have provided script for repeat blood work in 1 week.
3. Hypokalemia/Hypomagnesemia - Replaced K as needed, Mag replaced.
Care plan discussed with patient and daughter over the phone
Patient to be discharged home today.
Anticipated Discharge: Today
Subjective/Interval History
-
Date of Service: May 12, 2024
no issues overnight
denies any further episode of dizziness/syncope
Objective Data
-
Labs:
Laboratory Results
05/12/24
06:53
WBC 5.0
Hgb 9.2 L
Hct 26.8 L
Plt Count 149
Sodium 141
Potassium 3.3 L
Chloride 104
Carbon Dioxide 30
BUN 7
Creatinine 0.6
Glucose 102 H
Calcium 9.0
Total Bilirubin 0.2
AST 30
ALT 23
Alkaline Phosphatase 78
Vital Signs:
Vital Signs
Temp Pulse Resp BP Pulse Ox
97.9 F 94 20 140/75 96
05/12/24 07:00 05/12/24 07:00 05/12/24 07:00 05/12/24 07:00 05/12/24 07:00
I&O
05/11/24 05/12/24 05/13/24
06:59 06:59 06:59
Intake Total 2640 / 2640
Balance 2640 / 2640
Review of Systems
-
Respiratory: Reports No Symptoms
Cardiac: Reports No Symptoms
Abdomen/GI: Reports No Symptoms
Physical Exam
-
General: No Apparent Distress and Comfortable
HEENT: Negative Oxygen
Respiratory: Clear to Auscultation
Cardiac: Regular Rhythm and S1/S2; Negative Murmur or Rub
GI: Soft, Nontender, Nondistended and Normal Bowel Sounds
Musculoskeletal: No Edema
Neuro: Awake, Alert, Oriented, No Motor Deficits and Nonfocal/Grossly Intact
Psych: Calm
[2024-05-12 12:02] LABS: Glucose - Point of Care 122 mg/dl (70-99)
[2024-05-12] MEDS: FLUAD (65 yr+) 2024-2025 FORMULA 0.5 ML IM (12:48)
--- NOTE | 2024-05-13 14:45 | W.DCSUMMARY ---
Discharge Summary
Discharge Data
Date of Admission: 05/10/24
Date of Discharge: 05/12/24
-
Pending Results: No
Hospital Course
Discharging Physician : Dr Regan Wills
Disposition : Home
Primary care physician : Dr Sekou Hernandez
Principal Discharge diagnosis :
Presyncope
Orthostatic hypotension related to medication
Hypokalemia
Hypomagnesemia
Chronic Discharge diagnosis :
History of gastrointestinal bleed
Coronary disease status post coronary intervention
Rheumatoid arthritis
Type 2 diabetes
Essential hypertension
History of bladder cancer status post resection
Iron deficiency anemia
Former smoker
Hypothyroidism
History of left knee replacement
History of brain aneurysm status post coiling requiring 18 coils ' to stent in
Hospital Course :
Patient is a 78-year-old female with no mentioned past medical history came to ER after feeling lightheaded on standing up causing her to fall onto her knees at primary care physician office. Blood pressure check revealed patient hypotensive with
systolic blood pressure in 90s. Patient was sent to ER for further evaluation. In ER EKG did not show any new arrhythmia. Initial blood work did not show major abnormality except low potassium and magnesium level. Based on clinical history
suspected to have orthostatic hypotension episode. Patient on chlorthalidone for blood pressure control which was discontinued. Patient propranolol was held as well. Patient was given IV fluid boluses and replacement of electrolytes. Repeat
ortho vitals were checked negative, no further episodes during hospitalization.
Patient also history of chronic anemia and have extensive GI workup including endoscopy/capsule studies and have not shown any clear source. Patient hemoglobin has been slowly drifting down and was noted to be 10 which is lower than 12 from few
months back. Stool test was negative for any occult blood. Iron panel showing ferritin of 108 with low serum iron saturation unsuspecting may have component of anemia due to chronic disease/rheumatoid arthritis. In hospital patient hemoglobin
drifted down likely due to IV fluid requirement. Repeat blood work prescription has been provided.
Important imaging findings :
None
Procedure findings :
None
Discharge Plan
-
Patient Disposition: Home (Routine Discharge)
Discharge Diagnosis/Procedures: Orthostatic hypotension, Syncope, Likely anemia of chronic disease with Rheumatoid arthritis
Condition: Fair
Diet: Regular
Activity: As tolerated
Driving Restrictions: As prior to admission
Bathing Restrictions: OK to Shower
Blood Work: CBC in 1 week
Referrals:
Sekou Hernandez MD [Family Provider] - in one week
Additional Discharge Medication Instructions: Stop chlorthalidone. Propranolol dose decreased to 20mg twice daily
Prescriptions:
Continued
polyethylene glycol 3350 [Miralax] 17 gram Powder In Packet
17 g PO DAILY
cetirizine [Zyrtec] 10 mg Tablet
10 mg PO HS
prednisone 5 mg Tablet
2.5 mg PO DAILY
leflunomide 20 mg Tablet
20 mg PO DAILY
tramadol 50 mg Tablet
50 mg PO BIDPRN PRN (Reason: moderate pain)
levothyroxine 88 mcg Tablet
88 mcg PO DAILY
pantoprazole 40 mg Tablet,Delayed Release (Dr/Ec)
40 mg PO DAILY
ferrous sulfate 325 mg (65 mg iron) Tablet
325 mg PO DAILY
docusate sodium [Stool Softener] 100 mg Capsule
100 mg PO BID
gabapentin 300 mg Capsule
300 mg PO TID
aspirin 81 mg Tablet,Chewable
81 mg PO DAILY
folic acid 1 mg Tablet
1 mg PO DAILY
hydroxychloroquine 200 mg Tablet
200 mg PO BID
fluticasone propionate 50 mcg/actuation [place],Suspension
1 spray INTRANASAL HSPRN PRN (Reason: allergies)
sertraline 50 mg Tablet
50 mg PO DAILY
ramipril 5 mg Capsule
5 mg PO HS
multivitamin with iron [Hair Vitamins] Tablet
2 tab PO DAILY
ezetimibe 10 mg Tablet
10 mg PO HS
coenzyme Q10 [CoQ-10] 100 mg Capsule
200 mg PO HS
rosuvastatin 10 mg Tablet
10 mg PO HS
psyllium seed (sugar) Powder
2 tbsp PO HS
cholecalciferol (vitamin D3) [Vitamin D3] 50 mcg (2,000 unit) Tablet
50 mcg PO DAILY
multivit with min-folic acid [Multivitamin Gummies] 200 mcg Tablet,Chewable
400 tab PO DAILY
mirabegron [Myrbetriq] 25 mg Tablet Extended Release 24 Hr
25 mg PO DAILY
Ozempic
0.25 mg SC MO
Changed
propranolol 40 mg Tablet
20 mg PO BID Qty: 0 0RF
Discontinued
chlorthalidone 25 mg Tablet
25 mg PO DAILY
Discharge Orders:
Discharge Patient (As Directed); Ordered 05/12/24
Ordered By: Regan Wills
Discharge Date and Time
Discharge Date/Time: 05/12/24 15:32
Print Language: FRISIAN
== END 2024-05-12 15:32 | disposition home or self-care (01) | DRG 546 ==
LOC: 4 WEST ACU 21:33
PROVIDERS: Clinical Nurse Specialist Family Health; Nurse Practitioner; ADMITTING PHYSICIAN Hospitalist; ATTENDING PHYSICIAN Hospitalist; EMERGENCY PHYSICIAN Emergency Medicine; FAMILY PHYSICIAN Internal Medicine
DX: M06.9 Rheumatoid arthritis, unspecified (principal); N17.9 Acute kidney failure, unspecified; I95.1 Orthostatic hypotension; D63.8 Anemia in other chronic diseases classified elsewhere; Z87.891 Personal history of nicotine dependence; E87.6 Hypokalemia; E83.42 Hypomagnesemia; R62.7 Adult failure to thrive; Z68.24 Body mass index [BMI] 24.0-24.9, adult; E11.9 Type 2 diabetes mellitus without complications; I10 Essential (primary) hypertension
CPT/HCPCS: 71046; 80053; 81003; 81015; 82607; 82728; 82746; 82962; 83036; 83540; 83550; 83735; 84484; 85025; 87086; 93005; 96365; 96366; 96375; 97162; 97166; 99285

== ENCOUNTER 2025-04-22 17:48 | Emergency (ER) | payer OTHER, SELFPAY ==
[2025-04-22 17:53] VITALS: BP 177/93
[2025-04-22 18:24] LABS: Hematocrit 38.3 % (37.0-47.0); Hemoglobin 12.6 g/dL (12.0-16.0); Mean Corp Hgb Conc. 32.9 g/dL (33.0-37.0); Mean Corpuscular Volume 83.6 fL (81.0-99.0); Nucleated Red Blood Cells % 0 %; Platelet Count 160 10^3/uL (130-400); Red Cell Dist. Width 14.2 % (11.5-14.5)
[2025-04-22 18:42] LABS: ALT (SGPT) 28 U/L (0-35); AST (SGOT) 31 U/L (14-36); Albumin 4.7 g/dl (3.5-5.0); Alkaline Phosphatase 94 U/L (38-126); Blood Urea Nitrogen 19 mg/dl (7-17); Calcium 9.3 mg/dl (8.4-10.2); Carbon Dioxide 27 mmol/L (22-30); Chloride 106 mmol/L (98-107); Glucose 117 mg/dl (70-99); Potassium 4.0 mmol/L (3.5-5.1); Sodium 139 mmol/L (135-145); Total Protein 7.3 g/dl (6.3-8.2); eGFR > 60.00
[2025-04-22 18:55] LABS: Troponin I < 0.012 ng/ml
--- NOTE | 2025-04-22 19:38 | ED.GENMED ---
History of Present Illness
General
Chief Complaint: Chest Pain
Source: patient
Exam Limitations: none
Time Seen by Provider: 04/22/25 19:26
Nursing documentation reviewed up to this point in time: agreed with
History of Present Illness
History of Present Illness:
Note:
CHIEF COMPLAINT(S)
Pressure sensation in the chest and elevated blood pressure.
HISTORY OF PRESENT ILLNESS
The patient is a 79-year-old female with a history of coronary artery disease who reports feeling unwell yesterday and developed a pressure sensation in her chest today. She has a history of coronary artery conditions and experiences anxiety related
to cardiac health. Her blood pressure was noted to be 179/90 mmHg, which she states is unusual for her. She also reports experiencing dizziness and shortness of breath. The patient mentioned that her utility bill collector is Dr. Edward Johnson, and she has an
upcoming appointment next month. She has undergone a previous cardiac catheterization and has stents in the left circumflex and coronary arteries. There are no signs of a myocardial infarction on her electrocardiogram, and initial laboratory tests
were unremarkable.
ADDITIONAL HISTORY OBTAINED FROM SOURCES OTHER THAN THE PATIENT
The patient�s caregiver inquired about the need to remove jewelry for imaging procedures and was advised that necklaces and earrings should be removed prior to the chest X-ray.
CHRONIC MEDICAL CONDITIONS SIGNIFICANTLY AFFECTING CARE
Coronary artery disease.
PHYSICAL EXAM
General: Alert, no acute distress.
Skin: Warm, dry.
Head: Normocephalic, atraumatic.
Neck: Supple, trachea midline.
Eye Ears, nose, mouth and throat: Oral mucosa moist.
Cardiovascular: Normal peripheral perfusion, No edema.
Respiratory: Respirations are non-labored.
Gastrointestinal: Abdomen nondistended.
Back: Normal range of motion, Normal alignment.
Musculoskeletal: Normal ROM, normal strength.
Neurological: Alert and oriented to person, place, time, and situation, No focal neurological deficit observed.
Psychiatric: Cooperative, appropriate mood & affect.
PROBLEM LIST
Acute:
- Chest pressure
- Elevated blood pressure
- Dizziness
- Shortness of breath
Chronic:
- Coronary artery disease
PLAN
- Repeat cardiac enzyme tests, specifically the troponin test, to be obtained 3 hours after the initial test.
- Order a chest X-ray to evaluate for any signs of heart failure.
- Re-evaluate and update the patient after the chest X-ray and additional testing.
DIFFERENTIAL DIAGNOSIS
The Differential Diagnosis includes, in no particular order and is not limited to:
- Angina
- Myocardial infarction
- Heart failure
- Hypertensive crisis
- Aortic stenosis
- Pulmonary embolism
- Pericarditis
- Anxiety-induced chest pain
- Arrhythmia
- Gastroesophageal reflux disease
CARE-UPDATE
04/22/25 - 22:33
Patients chest x-ray shows no acute findings. Serial troponin tests are negative, and EKG results show no signs of ischemia. The patient is stable for discharge and will follow up with cardiology under Dr. Johnson. A return visit is scheduled as
indicated.
EKG
My independent EKG interpretation is:
- Time of EKG not mentioned
- Rhythm: Sinus rhythm with arrhythmia
- Heart Rate: 94 bpm
- Notable Intervals: Normal PA, normal QRS, normal QT
- [place]: Not mentioned
- Abnormalities: Non-specific ST & T wave abnormality
- No ST elevation
Disposition:
SUMMARY OF ENCOUNTER
The patient, a 79-year-old female with a history of coronary artery disease, presented to the emergency department with a pressure sensation in the chest, elevated blood pressure, dizziness, and shortness of breath. She was evaluated for potential
acute coronary syndrome, pulmonary embolism, pneumonia, and pneumothorax, which were ruled out. Serial troponin tests were negative, and EKG showed no signs of ischemia. The patient was managed conservatively given the absence of acute findings and
her stable condition.
DISPOSITION
Discharge.
ASSESSMENT
Chest pain, non-cardiac. Unlikely due to pulmonary embolism, acute coronary syndrome, pneumonia, or pneumothorax.
PLAN
The patient will be discharged and advised to follow up with her utility bill collector, Dr. Johnson, at [place] for further cardiac evaluation.
INDEPENDENT REVIEW OF LABS AND INTERPRETATION OF TESTS
- My independent review of the cardiac enzymes indicates serial troponin tests are negative.
- My independent EKG interpretation shows no signs of ischemia.
FOLLOW-UP INSTRUCTIONS
The patient should schedule a follow-up visit with Dr. Johnson, her utility bill collector, to ensure continuity of care and further management of her cardiac health.
MEDICATION RECONCILIATION
Target blood pressure medications were discussed but not explicitly prescribed during this visit.
MEDICAL DECISION MAKING
- Number and Complexity of Problems Addressed: Chronic conditions affecting care: Coronary artery disease. Differential diagnosis included angina, myocardial infarction, heart failure, hypertensive crisis, aortic stenosis, pulmonary embolism,
pericarditis, anxiety-induced chest pain, arrhythmia, and gastroesophageal reflux disease.
- Data:
Category 1
- My independent review of EKG and cardiac enzyme tests concluded they were both negative for acute ischemia.
Category 2
- Clinical information obtained from independent historian: The patients caregiver provided supplementary information regarding imaging procedures.
- Risk:
- Consideration of Admission/Observation: Escalation of care including admission/observation was considered given the complexity and risk of the patients presenting complaint, exam findings, and underlying comorbidities. However, ultimately I feel
the patient is safe for outpatient management with close follow-up. Reasoning: Work-up is reassuring, does not reveal any acute life/organ-threatening processes, patients symptoms are well controlled upon reevaluation, reexamination is reassuring,
vitals are stable, the patient is agreeable with discharge, and reliable for follow-up.
DIAGNOSIS
- Chest pain, unspecified (R07.9).
- Coronary artery disease (I25.10).
Phy Exam
Physical Exam
Physical Exam:
.
Scores
Heart Score for Chest Pain Patients
STEMI patient?: No
History: Slightly or Non-Suspicious
ECG: Normal
Age: >/= 65 years
Risk Factors: >/= 3 Risk Factors or History of CAD
Troponin: </= Normal Limit
Heart Score for Chest Pain Patients: 4
Heart Score Risk: 20.3% MACE over next 6 weeks
Course
Orders/Labs/Results
Orders:
Orders
04/22/25 17:49
Electrocardiogram (*1) Urgent
Reason for Study: Chest Pain
EKG- Treatment ONCE
04/22/25 18:11
Complete Blood Count/With Diff Urgent
Comprehensive Metabolic Panel Urgent
NT-proBNP Urgent
Comment: ADDON
Troponin I Urgent
04/22/25 19:39
Add On- LAB Urgent
Tests Added?: pro-bnp
04/22/25 19:43
CR Chest - 2 Views Urgent
Comment:
Reason For Exam: short of breath
04/22/25 21:43
Troponin I Urgent
Abnormal Lab Results
04/22/25
18:11
MCHC 32.9 L g/dL
(33.0-37.0)
MPV 10.6 H fL
(7.4-10.4)
Absolute Monos (auto) 0.7 H 10^3/uL
(0.1-0.6)
Neutrophils % 75.7 H %
(42.2-75.2)
Lymphocytes % 14.4 L %
(20.5-51.1)
BUN 19 H mg/dl
(7-17)
Glucose 117 H mg/dl
(70-99)
04/22/25 18:11
04/22/25 18:11
Vital Signs
Initial and Last Documented VS:
Initial Vital Signs
Pulse Resp BP Pulse Ox
89 18 177/93 96
04/22/25 17:53 04/22/25 17:53 04/22/25 17:53 04/22/25 17:53
Last Documented Vital Signs
Temp Pulse Resp BP Pulse Ox
98.3 F 65 20 153/91 97
04/22/25 19:42 04/22/25 22:30 04/22/25 22:30 04/22/25 22:00 04/22/25 20:45
*Pulse Oximetry
SaO2: 96
Oxygen Mode of Delivery: Room air
Patient hypoxic: no
*Critical Care Note
Total Time (30-74mins, 75-104mins- exclusive of procedures): Not Applicable
ED Attending Note
-
Portions of this chart may have been created with voice recognition software.� Occasional wrong word or��sound alike� substitutions may have occurred due to the inherent limitations of voice recognition software.
Discharge Plan
Departure
Patient Disposition: Home (Routine Discharge)
Date of Disposition: 04/22/25
Time of Disposition: 22:34
Patient with high blood pressure during this ER visit?: Yes
Condition: Good
Discharge Problem:
Chest pain
Instructions: Chest Pain NON-[facility] [place] Follow Up, BLOOD PRESSURE
Prescriptions:
No Action
polyethylene glycol 3350 [Miralax] 17 gram Powder In Packet
17 g PO DAILY
cetirizine [Zyrtec] 10 mg Tablet
10 mg PO HS
prednisone 5 mg Tablet
2.5 mg PO DAILY
leflunomide 20 mg Tablet
20 mg PO DAILY
tramadol 50 mg Tablet
50 mg PO BIDPRN PRN (Reason: moderate pain)
levothyroxine 88 mcg Tablet
88 mcg PO DAILY
pantoprazole 40 mg Tablet,Delayed Release (Dr/Ec)
40 mg PO DAILY
ferrous sulfate 325 mg (65 mg iron) Tablet
325 mg PO DAILY
docusate sodium [Stool Softener] 100 mg Capsule
100 mg PO BID
gabapentin 300 mg Capsule
300 mg PO TID
aspirin 81 mg Tablet,Chewable
81 mg PO DAILY
folic acid 1 mg Tablet
1 mg PO DAILY
hydroxychloroquine 200 mg Tablet
200 mg PO BID
fluticasone propionate 50 mcg/actuation [place],Suspension
1 spray INTRANASAL HSPRN PRN (Reason: allergies)
sertraline 50 mg Tablet
50 mg PO DAILY
ramipril 5 mg Capsule
5 mg PO HS
multivitamin with iron [Hair Vitamins] Tablet
2 tab PO DAILY
ezetimibe 10 mg Tablet
10 mg PO HS
coenzyme Q10 [CoQ-10] 100 mg Capsule
200 mg PO HS
rosuvastatin 10 mg Tablet
10 mg PO HS
psyllium seed (sugar) Powder
2 tbsp PO HS
cholecalciferol (vitamin D3) [Vitamin D3] 50 mcg (2,000 unit) Tablet
50 mcg PO DAILY
multivit with min-folic acid [Multivitamin Gummies] 200 mcg Tablet,Chewable
400 tab PO DAILY
mirabegron [Myrbetriq] 25 mg Tablet Extended Release 24 Hr
25 mg PO DAILY
Ozempic
0.25 mg SC MO
propranolol 40 mg Tablet
20 mg PO BID Qty: 0 0RF
Referrals:
Sekou Hernandez MD [Family Provider, Internal Medicine] - Call in 1-3 days for appt
Interventions
Interventions:
*Risk Screen - Suicide Last Done: 04/22/25 17:53
*General Assessment Last Done: 04/22/25 17:53
*ED- Fall Risk Assessment Last Done: 04/22/25 19:45
*ED COVID-19 Vaccine History Last Done: 04/22/25 19:45
*ED Influenza Vaccine History Last Done: 04/22/25 19:45
ED- Cardiac Assessment Last Done: 04/22/25 19:46
Discharge Date and Time
Print Language: SLOVENIAN
[2025-04-22 19:41] VITALS: BP 157/79
[2025-04-22 19:42] VITALS: BP 157/79
[2025-04-22 19:51] VITALS: BMI 27.4
[2025-04-22 20:00] VITALS: BP 149/95
[2025-04-22 21:42] VITALS: BP 152/88
[2025-04-22 22:00] VITALS: BP 153/91
[2025-04-22 22:29] LABS: Troponin I < 0.012 ng/ml
== END 2025-04-22 22:44 | disposition home or self-care (01) ==
LOC: EMR 17:48
PROVIDERS: Emergency Medicine; EMERGENCY PHYSICIAN Emergency Medicine; FAMILY PHYSICIAN Internal Medicine
DX: R07.9 Chest pain, unspecified (principal); R03.0 Elevated blood-pressure reading, without diagnosis of hypertension; I25.10 Atherosclerotic heart disease of native coronary artery without angina pectoris; Z79.82 Long term (current) use of aspirin; Z95.5 Presence of coronary angioplasty implant and graft
CPT/HCPCS: 99284; 71046; 80053; 83880; 84484; 85025; 93005